=== PATIENT | female | born 2000 | race Caucasian/White ===

== ENCOUNTER 2021-04-25 08:06 | Emergency (ER) | payer OTHER ==
[2021-04-25] MEDS ORDERED: Ibuprofen 200 MG TAB ONE ×2 (09:06→09:08)
[2021-04-25] MEDS ORDERED: Acetaminophen 325 MG TAB ONE (09:06)
[2021-04-25 20:33] LABS: SARS-CoV-2 PCR by NAA DETECTED (NotDetected)
== END 2021-04-25 10:10 | disposition home or self-care (01) ==
LOC: ERS 08:06
DX: U07.1 COVID-19 (principal)
CPT/HCPCS: 87081; 87430; 99283; U0003; U0005

== ENCOUNTER 2021-09-30 21:24 | Emergency (ER) | payer OTHER ==
[2021-09-30] MEDS ORDERED: HYDROcodone/Acetaminophen 10/325 mg Tablet ONE (21:50)
== END 2021-09-30 22:46 | disposition home or self-care (01) ==
LOC: ERS 21:24
DX: S93.402A Sprain of unspecified ligament of left ankle, initial encounter (principal); X50.1XXA Overexertion from prolonged static or awkward postures, initial encounter

== ENCOUNTER 2021-12-07 10:32 | Emergency (ER) | payer OTHER ==
[2021-12-07] MEDS ORDERED: Dexameth. Sod Phosp. 10 MG/ML (CHEMO USE ONLY) ONE (11:58)
== END 2021-12-07 12:02 | disposition home or self-care (01) ==
LOC: ERS 10:32
DX: J02.8 Acute pharyngitis due to other specified organisms (principal)
CPT/HCPCS: 87081; 87430; 99283; J1100

== ENCOUNTER 2022-03-24 13:42 | Emergency (ER) | payer OTHER ==
[2022-03-24] MEDS ORDERED: Dexamethasone 4 MG TAB ONE (15:04)
== END 2022-03-24 15:11 ==
LOC: ERS 13:42
DX: B34.9 Viral infection, unspecified (principal)
CPT/HCPCS: 87804; 99283; J8540